=== PATIENT | female | born 1965 | race African-American/Black ===

== ENCOUNTER 2017-05-06 18:34 | Emergency (ER) | payer OTHER ==
[~2017-05-06] VITALS: Ht 175.3 cm; Wt 56.7 kg
--- NOTE | ~2017-05-06 | EKG ---
[address] [address] ELECTROCARDIOGRAM REPORT Name: KADEEM ROBINS Room #: [facility]#: [id number] Admission: 05/06/17 Attend Phys: Discharge: 05/06/17 Date of : 61 Report #: [id number] THIS REPORT FOR: //name// [facility] ED Test Date: 2017-05-06 Test Time: 18:57:46 Pat Name: KADEEM ROBINS Department: Room: Gender: F Aerial Installer: [id number] : [id number] Requested By: Brice Dowell Order Number: [id number] MD: Oliver Grove Measurements Intervals [place] Rate: 78 P: 88 NM: 138 QRS: 53 QRSD: 88 T: -27 QT: 386 QTc: 440 Interpretive Statements Sinus rhythm Borderline repolarization abnormality Compared to ECG 10/30/2015 13:33:34 No significant changes Electronically Signed On 05-07-2017 22:21:07 CDT by Oliver Grove [email or web address] <ELECTRONICALLY SIGNED> By: Oliver Grove MD 05/07/17 [id number] Oliver Grove MD /YANIQUE
[~2017-05-06 18:34] MED LIST: AUGMENTIN 875875 MG PO; DEPAKOTE500 MG PO; HYDROCODON-ACE1 EAC7 PO; KEPPRA 500 MG500 M1 PO; KETOCONAZOLE60 GM; LORTAB; LYRICA100 MG PO; MECLIZINE 25 MG25 M1 PO; MYSOLINE250 MG PO; NORCO 5-325 TA1 EACH PO; PERCOCET 5-3251 EACH PO; PREMPRO 0.625-1 EACH PO; SLOW FE PO; TOPAMAX50 MG PO; UNICOMPLEX M TA1 TA1 PO; ZOFRAN ODT4 MG PO
[2017-05-06 19:13] LABS: HEMATOCRIT 32.4 % (37.0-47.0); HEMOGLOBIN 10.2 gm/dL (12.0-15.0); MCH 26.8 pg (26.0-34.0); MCHC 31.5 g/dL (28.0-37.0); PLATELET COUNT 247 thou/uL (150-400); RBC 3.81 mil/uL (4.20-5.00); RDW 18.5 % (10.5-14.5); WBC 10.9 thou/uL (4.0-11.0)
[2017-05-06 19:14] LABS: MANUAL DIFF YES
[2017-05-06 19:20] LABS: CALCIUM 8.8 mg/dL (8.5-10.1); CREATININE 0.7 mg/dL (0.6-1.0); POTASSIUM 3.4 mmol/L (3.5-5.1)
[2017-05-06 19:25] LABS: ALBUMIN 3.4 g/dL (3.4-5.0); TOTAL BILIRUBIN 0.2 mg/dL (<0.1-1.0); TOTAL PROTEIN 8.4 g/dL (6.4-8.2)
[2017-05-06] MEDS ORDERED: BENTYL 20 MG TA20 M1 PO (19:54)
[2017-05-06] MEDS ORDERED: PROAIR HFA8.5 GM INH (19:54)
[2017-05-06] MEDS ORDERED: ONDANSETRON HCL4 M2 PO (19:54)
[2017-05-06 20:11] LABS: ABSOLUTE NEUTROPHILS 7.1 thou/uL (1.4-8.2); ANISOCYTOSIS 1+; TOTAL CELL COUNT 100
[2017-05-06 20:28] LABS: URINE BILIRUBIN NEGATIVE (Negative); URINE BLOOD 1+ (Negative); URINE COLOR YELLOW; URINE GLUCOSE-RANDOM* NEGATIVE (Negative); URINE KETONES TRACE (Negative); URINE LEUKOCYTES-REFLEX 1+ (Negative); URINE PROTEIN (DIPSTICK) NEGATIVE (Negative)
[2017-05-06 20:40] LABS: CASTS None Seen /LPF (None Seen); CRYSTALS None Seen /LPF (None Seen); SQUAMOUS 0-3 Few /LPF (0-3); URINE RBC 0-2 Rare /HPF (0-2); URINE WBC-REFLEX 0-5 Rare /HPF (0-5)
== END 2017-05-06 21:04 | disposition home or self-care (01) ==
LOC: ER 18:34
PROVIDERS: Emergency Medicine
DX: R10.9 Unspecified abdominal pain (principal); R05 Cough; Z90.49 Acquired absence of other specified parts of digestive tract

== ENCOUNTER 2017-12-09 13:08 | Emergency (ER) | payer OTHER ==
[~2017-12-09] VITALS: Ht 167.6 cm; Wt 59.0 kg
[~2017-12-09 13:08] MED LIST changes: +BENTYL 20 MG TA20 M1 PO; +ONDANSETRON HCL4 M2 PO; +PROAIR HFA8.5 GM INH
[2017-12-09 15:15] LABS: ABSOLUTE NEUTROPHILS 2.7 thou/uL (1.4-8.2); BASOPHILS 0.5 % (0.0-2.0); EOSINOPHILS 0.1 % (0.0-3.0); HEMATOCRIT 32.9 % (37.0-47.0); HEMOGLOBIN 10.4 gm/dL (12.0-15.0); LYMPHOCYTES 39.2 % (24.0-44.0); MCH 26.5 pg (26.0-34.0); MCHC 31.5 g/dL (28.0-37.0); MCV 84.2 fL (80.0-100.0); MONOCYTES 9.7 % (1.0-8.0); PLATELET COUNT 101 thou/uL (150-400); POLYS 50.5 % (36.0-66.0); RBC 3.91 mil/uL (4.20-5.00); RDW 16.4 % (10.5-14.5); WBC 5.3 thou/uL (4.0-11.0)
[2017-12-09 15:27] LABS: CREATININE 0.8 mg/dL (0.6-1.0); MAGNESIUM 2.1 mg/dL (1.8-2.4); POTASSIUM 3.5 mmol/L (3.5-5.1)
[2017-12-09 16:15] LABS: URINE BILIRUBIN NEGATIVE (Negative); URINE BLOOD NEGATIVE (Negative); URINE CLARITY CLEAR; URINE COLOR YELLOW; URINE GLUCOSE-RANDOM* NEGATIVE (Negative); URINE KETONES TRACE (Negative); URINE NITRITE-REFLEX NEGATIVE (Negative); URINE PROTEIN (DIPSTICK) NEGATIVE (Negative); URINE UROBILINOGEN 0.2 E.U./dl (0.2-1.0)
[2017-12-09 16:22] LABS: URINE LEUKOCYTES-REFLEX 1+ (Negative)
[2017-12-09 16:30] LABS: CASTS None Seen /LPF (None Seen); CRYSTALS None Seen /LPF (None Seen); SQUAMOUS 4-10 Moderate /LPF (0-3); URINE RBC None Seen /HPF (0-2)
[2017-12-09] MEDS ORDERED: KEFLEX500 M1 PO (16:35)
[2017-12-09 16:41] VITALS: BP 96/54
[2018-06-30] MEDS ORDERED: TRAMADOL 50 MG50 MG PO (20:47)
== END 2017-12-09 17:09 | disposition home or self-care (01) ==
LOC: ER 13:08
PROVIDERS: Emergency Medicine
DX: N39.0 Urinary tract infection, site not specified (principal); Z90.49 Acquired absence of other specified parts of digestive tract; W18.39XA Other fall on same level, initial encounter; Y93.89 Activity, other specified; Y92.092 Bedroom in other non-institutional residence as the place of occurrence of the external cause; Y99.8 Other external cause status

== ENCOUNTER 2020-03-21 22:15 | Emergency (ER) | payer OTHER ==
[~2020-03-21] VITALS: Ht 167.6 cm; Wt 55.8 kg
[~2020-03-21 22:15] MED LIST changes: +KEFLEX500 M1 PO; +TRAMADOL 50 MG50 MG PO
[2020-03-21 23:12] LABS: BASOPHILS 0.3 % (0.0-2.0); EOSINOPHILS 0.2 % (0.0-3.0); HEMATOCRIT 37.3 % (37.0-47.0); HEMOGLOBIN 11.8 gm/dL (12.0-15.0); MCH 27.4 pg (26.0-34.0); MCHC 31.8 g/dL (28.0-37.0); MCV 86.4 fL (80.0-100.0); MONOCYTES 9.5 % (1.0-8.0); PLATELET COUNT 108 thou/uL (150-400); RBC 4.31 mil/uL (4.20-5.00); RDW 19.3 % (10.5-14.5)
[2020-03-21 23:14] LABS: CALCIUM 9.3 mg/dL (8.5-10.1); CREATININE 0.9 mg/dL (0.6-1.0); POTASSIUM 3.2 mmol/L (3.5-5.1)
[2020-03-21 23:20] LABS: MAGNESIUM 1.7 mg/dL (1.8-2.4)
[2020-03-22] MEDS ORDERED: IBUPROFEN 600600 M1 PO (01:10)
[2020-03-22 01:35] VITALS: BP 98/51
== END 2020-03-22 01:36 | disposition home or self-care (01) ==
LOC: ER 22:15
PROVIDERS: Emergency Medicine
DX: S93.401A Sprain of unspecified ligament of right ankle, initial encounter (principal); E87.6 Hypokalemia; E83.42 Hypomagnesemia; Z98.890 Other specified postprocedural states; Z79.899 Other long term (current) drug therapy; Z90.49 Acquired absence of other specified parts of digestive tract; W19.XXXA Unspecified fall, initial encounter; Y93.89 Activity, other specified; Y92.89 Other specified places as the place of occurrence of the external cause; Y99.8 Other external cause status

== ENCOUNTER 2020-06-15 19:42 | Emergency (ER) | payer OTHER ==
[~2020-06-15] VITALS: Ht 170.2 cm; Wt 55.3 kg
[~2020-06-15 19:42] MED LIST changes: +IBUPROFEN 600600 M1 PO
[2020-06-15] MEDS ORDERED: KLOR-CON 10 ER10 MEQ PO (19:54)
[2020-06-15] MEDS ORDERED: OMEPRAZOLE 20 M20 M1 PO (19:54)
[2020-06-15] MEDS ORDERED: TRAMADOL 50 MG50 MG PO (19:55)
[2020-06-15 22:06] LABS: URINE BILIRUBIN NEGATIVE (Negative); URINE BLOOD NEGATIVE (Negative); URINE CLARITY CLEAR; URINE COLOR YELLOW; URINE GLUCOSE-RANDOM* NEGATIVE (Negative); URINE KETONES NEGATIVE (Negative); URINE NITRITE-REFLEX NEGATIVE (Negative); URINE PROTEIN (DIPSTICK) NEGATIVE (Negative); URINE SPECIFIC GRAVITY >= 1.030 (1.005-1.035); URINE UROBILINOGEN 0.2 E.U./dl (0.2-1.0)
[2020-06-15 22:07] LABS: ABSOLUTE NEUTROPHILS 3.8 thou/uL (1.4-8.2); BASOPHILS 1.4 % (0.0-2.0); EOSINOPHILS 0.3 % (0.0-3.0); HEMATOCRIT 36.9 % (37.0-47.0); HEMOGLOBIN 11.8 gm/dL (12.0-15.0); LYMPHOCYTES 37.5 % (24.0-44.0); MCH 27.7 pg (26.0-34.0); MCV 86.4 fL (80.0-100.0); MONOCYTES 10.3 % (1.0-8.0); PLATELET COUNT 143 thou/uL (150-400); POLYS 50.5 % (36.0-66.0); RBC 4.26 mil/uL (4.20-5.00); RDW 17.1 % (10.5-14.5); WBC 7.9 thou/uL (4.0-11.0)
[2020-06-15 22:07] LABS: URINE LEUKOCYTES-REFLEX 1+ (Negative)
[2020-06-15 22:15] LABS: CASTS None Seen /LPF (None Seen); CRYSTALS None Seen /LPF (None Seen); SQUAMOUS 4-10 Moderate /LPF (0-3)
[2020-06-15 22:16] LABS: URINE WBC-REFLEX 6-15 Few /HPF (0-5)
[2020-06-15 22:18] LABS: BACTERIA-REFLEX 1-9 Few /HPF (None Seen); URINE RBC 0-2 Rare /HPF (0-2)
[2020-06-15 22:21] LABS: CALCIUM 9.6 mg/dL (8.5-10.1); CREATININE 0.6 mg/dL (0.6-1.0); POTASSIUM 3.2 mmol/L (3.5-5.1)
[2020-06-15 22:27] LABS: ALBUMIN 3.8 g/dL (3.4-5.0); TOTAL BILIRUBIN 0.2 mg/dL (0.2-1.0); TOTAL PROTEIN 8.8 g/dL (6.4-8.2)
[2020-06-16] MEDS ORDERED: MACROBID 100 M100 M1 PO (01:27)
[2020-06-16 02:03] VITALS: BP 123/57
== END 2020-06-16 02:33 | disposition home or self-care (01) ==
LOC: ER 19:42
PROVIDERS: Emergency Medicine
DX: K59.00 Constipation, unspecified (principal); N39.0 Urinary tract infection, site not specified; E87.6 Hypokalemia; G40.909 Epilepsy, unspecified, not intractable, without status epilepticus; G43.909 Migraine, unspecified, not intractable, without status migrainosus; Z90.49 Acquired absence of other specified parts of digestive tract; Z79.899 Other long term (current) drug therapy